=== PATIENT | male | born 1980 | race Caucasian/White ===

== ENCOUNTER → 2018-02-05 06:59 | Outpatient (CLI) | payer OTHER, MEDICAID, SELFPAY ==
[2018-02-05 09:31] LABS: Add Manual Diff / Slide Review NO; Basophils Percent Auto 0.9 % (0-2); Eosinophils Percent Auto 4.3 % (2-4); Hematocrit 43.1 % (41-53); Hemoglobin 14.5 g/dL (13.5-17.5); Lymphocytes Percent Auto 11.5 % (25-40); Mean Corpuscular HGB Conc 33.5 % (30-36); Mean Corpuscular Volume 86.4 fL (80-100); Monocytes Percent Auto 9.6 % (3-14); Neutrophils Absolute Auto 7000 /uL (3000-5900); Neutrophils Percent Auto 73.7 % (50-75); Platelet Count 353 X10^3/uL (150-400); Red Blood Cell Count 4.99 X10^6/uL (4.5-5.9); Red Cell Distribution Width 13.9 % (11.6-14.8); White Blood Cell Count 9.5 X10^3/uL (4.5-11.0)
[2018-02-05 09:57] LABS: Creatinine Urine Random 141.7 mg/dL
[2018-02-05 10:02] LABS: Microalbumi Creatinin Ratio Ur 6.3 ug/mg CR (<30); Microalbumin Urine Random 0.9 mg/dL (0-1.6)
[2018-02-05 10:09] LABS: Alanine Aminotransferase 38 IU/L (21-72); Albumin 4.4 g/dL (3.5-5.0); Albumin Globulin Ratio 1.2 (1.0-2.8); Alkaline Phosphatase 119 U/L (38-126); Aspartate Aminotransferase 24 IU/L (17-59); BUN Creatinine Ratio 11.1 (6-22); Bilirubin Total 0.3 mg/dL (0.2-1.3); Blood Urea Nitrogen 10 mg/dL (9-20); Calcium 9.3 mg/dL (8.4-10.2); Carbon Dioxide 26 mmol/L (22-32); Chloride 103 mmol/L (98-107); Estimated Glomerular Filt Rate > 60.0 mL/min (>60); Globulin 3.7 g/dL (1.7-4.1); Glucose 101 mg/dL (70-100); HEMOLYSIS < 15 (0-50); Potassium 4.4 mmol/L (3.4-5.1); Sodium 143 mmol/L (137-145); Total Protein 8.1 g/dL (6.3-8.2)
[2018-02-05 10:28] LABS: Thyroid Stimulating Hormone 1.73 uIU/mL (0.47-4.68)
== END ==
PROVIDERS: Family Provider Physician Assistant; PCP Physician Assistant; Visit Provider Physician Assistant
DX: I10 Essential (primary) hypertension (principal); R53.83 Other fatigue; R60.0 Localized edema
CPT/HCPCS: 36415; 80053; 82043; 82570; 84443; 85025

== ENCOUNTER 2018-07-13 09:06 | Emergency (ER) | payer OTHER, MEDICAID, SELFPAY ==
[2018-07-13 09:14] VITALS: BP 154/76; PULSE 82; RESP 16; TEMP 36.8; O2SAT 96; BMI 58.6
--- NOTE | 2018-07-13 09:33 | ED.BACK ---
HPI - Back Pain/Injury General Chief Complaint: Back Pain/Injury Stated Complaint: Back pain Time Seen by Provider: 07/13/18 09:33 Source: patient Mode of arrival: ambulatory Limitations: no limitations History of Present Illness HPI Narrative: This is a 38-year-old male comes to the emergency department with complaint of low back pain. Patient states he has had symptoms on off for couple years but they have been slowly worsening over the last couple weeks. Typically he would notice issues more with bending and twisting, but lately on any kind of movement concerned of kick it off. He has had shots for pain in the past here to the emergency department. Patient states that he is not sure if he has had any imaging of his back. He thinks he has had 2 x-rays in the past but he is unsure if it was actually his back. He denies any loss of bowel or bladder control. He is not having any numbness or weakness. Occasionally he will have some pain radiating down the left leg when it 1st happened with particular movements. But not regularly and not currently. He has been taking ibuprofen for pain intermittently. This usually controlled his pain moderately well. He denies any trauma or other injuries. Some he states he has been more physical lately. He takes medications for hypertension, he denies any other past medical issues. He denies any surgeries. Denies any allergies to medications. Patient does smoke, he drinks occasionally, he does smoke marijuana but denies any other IV drugs. He has not noticed any rashes or redness over the site. Related Data Home Medications Medication Instructions Recorded Confirmed ibuprofen [Advil] 600 mg PO PRN PRN #0 04/25/16 02/06/18 Previous Rx's Medication Instructions Recorded buspirone 5 mg tablet 5 mg PO BID #60 tab 11/26/17 furosemide 20 mg tablet 40 mg PO QDAY #60 tab 12/14/17 lisinopril 20 mg tablet 20 mg PO QDAY #90 tab 03/12/18 metoprolol succinate ER 50 mg 50 mg PO QDAY #90 tab 03/12/18 tablet,extended release 24 hr Allergies Allergy/AdvReac Type Severity Reaction Status Date / Time No Known Drug Allergies Allergy Verified 07/13/18 09:14 Review of Systems Review of Systems ROS Unobtainable: All systems reviewed & are unremarkable except as noted in HPI and below Constitutional Denies chills, Denies fever(s) and Denies weakness Gastrointestinal Gastrointestinal: Denies fecal incontinence Genitourinary Denies urinary incontinence Musculoskeletal Reports as per HPI, Denies abnormal gait, Reports back pain, Denies limited range of motion, Denies muscle weakness, Denies numbness, Reports radiating pain into limb (Occasionally left leg) and Denies tingling Integumentary/Breasts Denies non-healing lesions, Denies erythema and Denies rash Neurologic Denies abnormal gait, Denies numbness, Denies sensory deficit, Denies tingling and Denies weakness [facility] Medical History Hypertension (Chronic) Varicose veins of lower extremity (Chronic) Surgical History No history of previous surgery (Resolved) Family History (Updated 11/22/17 @ 14:36 by Zunilda Gloria LPN) Father Age: 68 Atrial fibrillation, unspecified type Essential hypertension Mother Melanoma Social History Smoking Status: Never smoker Smokeless tobacco user: chewing tobacco (been chewing for 24 years. ) second hand exposure: Yes (occasionally) alcohol intake: current (beer about 3 times a week.) substance use type: marijuana (smoke it daily.) Family History Father Age: 68 Atrial fibrillation, unspecified type Essential hypertension Mother Melanoma Social History Smoking Status: Never smoker Smokeless tobacco user: chewing tobacco (been chewing for 24 years. ) second hand exposure: Yes (occasionally) alcohol intake: current (beer about 3 times a week.) substance use type: marijuana (smoke it daily.) Exam Narrative Exam Narrative: GENERAL: Alert and oriented x three, well-appearing, morbidly obese male in mild distress. HEENT: Head normocephalic, atraumatic, EOMI, pupils reactive, face symmetric, moist mucous membranes NECK: Supple, full range of motion CARDIOVASCULAR: Regular rate and rhythm without murmurs, rubs or gallops. RESPIRATORY: Breath sounds equal bilaterally, no wheezes rales or rhonchi. ABDOMEN: Soft, nontender. Normoactive bowel sounds all 4 quadrants. No guarding or rebound, rigidity, no mass : No CVA tenderness BACK: No cervical, thoracic or lumbar vertebral point tenderness. Patient has some mild tenderness just lateral on the left side of the L4-5 region. There is no skin changes. Patient has normal range of motion. Patient is able to get up off the bed stand to get back on without any major issues. Patient's gait is normal. Rectal exam is deferred. Muscle strength is 5/5 in lower extremities, DTRs are difficult to obtain secondary to habitus and height of bed. Dorsalis pedis and tibialis pulses are 2+ and lower extremities. Sensation is intact in the lower extremities. EXTREMITIES: Normal range of motion, no clubbing or edema. Neurovascularly intact NEUROLOGICAL: Cranial nerves II through XII grossly intact. Moving all extremities SKIN: Warm, dry, no petechiae, no rashes or lesions. Initial Vital Signs Initial Vital Signs: Vital Signs Temperature 98.3 F 07/13/18 09:14 Pulse Rate 82 07/13/18 09:14 Respiratory Rate 16 07/13/18 09:14 Blood Pressure 154/76 H 07/13/18 09:14 Pulse Oximetry 96 07/13/18 09:14 Course Orders Ordered: ED Orders 07/13/18 09:44 XR lumbar spine 2-3V Stat Discontinued Medications Ketorolac Tromethamine (Toradol) 60 mg IM NOW ONE Stop: 07/13/18 09:44 Last Admin: 07/13/18 09:51 Dose: 60 mg Vital Signs - 8 hr 07/13/18 09:14 07/13/18 10:41 Temperature 98.3 F Pulse Rate 82 72 Respiratory Rate 16 16 Blood Pressure 154/76 H Blood Pressure [Right Arm] 155/90 H Pulse Oximetry 96 98 MDM - Back Pain/Injury Imaging Data L-spine x-ray: Radiologist's impression: [address] [address] XRay Report Signed Patient: Patrick Castillo INAR#: [id number] : 1980Acct:[id number] Age/Sex: 38 / MDate of Service: 07/13/18 Loc: ED Accession Number: [id number] Procedure: XR lumbar spine 2-3V Ordering Provider: Mank,Christina C D.O. PROCEDURE: XR LUMBAR SPINE 2-3V INDICATIONS: acute on chronic LBP, L4/L5 region, no trauma, no imaging pr TECHNIQUE: 3 views of the lumbar spine were acquired. COMPARISON: None. FINDINGS: Bones: 5 [id number] vertebrae are present. There is normal bony alignment. No vertebral body compression fractures. No suspicious bony lesions. Mild lower lumbar spine facet arthropathy is seen. Soft tissues: Overlying bowel gas pattern is normal. No suspicious soft tissue calcifications. IMPRESSION: Mild degenerative changes are seen, without an acute abnormality identified. Dictated by: Arvind Zavaleta M.D. on 07/13/2018 at 9:04 Approved by: Arvind Zavaleta M.D. on 07/13/2018 at 9:04 [facility] Narrative Medical decision making narrative: Patient appears to have some acute on chronic low back pain. Some patients old images were reviewed and I am not able to find any of his lumbar spine from the past there are 2 which fits with his history of having 2 prior x-rays psoas patient has had some chronic low back pain and he is only 38 years old although this is likely secondary to obesity causing some of his issues I did order a lumbar spine. Patient does not have any red flag symptoms at this time. He is requesting a shot of Toradol. The patient is feeling much better. L-spine x-ray does not show any acute changes but does have some degenerative changes. We discussed weight loss, following with primary. We also discussed decreasing his ibuprofen intake and alternating with Tylenol. Discharge Plan Departure Patient Disposition: Home Clinical Impression: Low back pain Discharge Date/Time: 07/13/18 10:43 Interventions: ED Discharge Assessment Last Done: 07/13/18 10:42 Instructions: DI for Low Back Pain Activity Restrictions/Additional Instructions: Follow-up with your primary care in the next week for recheck. If you continued to have symptoms that are worsening I would recommend discussing further imaging or PT. You may take ibuprofen up to 800 mg every 8 hours as needed for pain, you can take Tylenol with this medication and may take up to a 1000 mg every 8 hours. Return to the emergency department for fevers, rapidly worsening symptoms, loss of bowel and/or bladder control, new weakness/numbness or difficulty using your extremities or other new or concerning symptoms. Prescriptions: No Action buspirone 5 mg tablet 5 mg PO BID Qty: 60 RF: 1 ibuprofen [Advil] 200 MG tablet 600 mg PO PRN PRNQty: 0 RF: 0 furosemide 20 mg tablet 40 mg PO QDAY Qty: 60 RF: 6 lisinopril 20 mg tablet 20 mg PO QDAY Qty: 90 RF: 0 metoprolol succinate 50 mg tablet extended release 24 hr 50 mg PO QDAY Qty: 90 RF: 0 Referrals: Tonia Basilio PA-C [Primary Care Provider] -
--- NOTE | 2018-07-13 09:44 | DI.RAD.S_ITS ---
PROCEDURE: XR LUMBAR SPINE 2-3V INDICATIONS: acute on chronic LBP, L4/L5 region, no trauma, no imaging pr TECHNIQUE: 3 views of the lumbar spine were acquired. COMPARISON: None. FINDINGS: Bones: 5 [id number] vertebrae are present. There is normal bony alignment. No vertebral body compression fractures. No suspicious bony lesions. Mild lower lumbar spine facet arthropathy is seen. Soft tissues: Overlying bowel gas pattern is normal. No suspicious soft tissue calcifications. IMPRESSION: Mild degenerative changes are seen, without an acute abnormality identified. Dictated by: Arvind Zavaleta M.D. on 07/13/2018 at 9:04 Approved by: Arvind Zavaleta M.D. on 07/13/2018 at 9:04
[2018-07-13] MEDS: KETOROLAC 60 MG/2 ML VIAL IM (09:51)
--- NOTE | 2018-07-13 09:52 | ED_ITS ---
HPI - Back Pain/Injury General Chief Complaint: Back Pain/Injury Stated Complaint: Back pain Time Seen by Provider: 07/13/18 09:33 Source: patient Mode of arrival: ambulatory Limitations: no limitations History of Present Illness HPI Narrative: This is a 38-year-old male comes to the emergency department with complaint of low back pain. Patient states he has had symptoms on off for couple years but they have been slowly worsening over the last couple weeks. Typically he would notice issues more with bending and twisting, but lately on any kind of movement concerned of kick it off. He has had shots for pain in the past here to the emergency department. Patient states that he is not sure if he has had any imaging of his back. He thinks he has had 2 x-rays in the past but he is unsure if it was actually his back. He denies any loss of bowel or bladder control. He is not having any numbness or weakness. Occasionally he will have some pain radiating down the left leg when it 1st happened with partic ular movements. But not regularly and not currently. He has been taking ibuprofen for pain intermittently. This usually controlled his pain moderately well. He denies any trauma or other injuries. Some he states he has been more physical lately. He takes medications for hypertension, he denies any other past medical issues. He denies any surgeries. Denies any allergies to medications. Patient does smoke, he drinks occasionally, he does smoke marijuana but denies any other IV drugs. He has not noticed any rashes or redness over the site. Related Data Home Medications Medication Instructions Recorded Confirmed ibuprofen [Advil] 600 mg PO PRN PRN #0 04/25/16 02/06/18 Previous Rx's Medication Instructions Recorded buspirone 5 mg tablet 5 mg PO BID #60 tab 11/26/17 furosemide 20 mg tablet 40 mg PO QDAY #60 tab 12/14/17 lisinopril 20 mg tablet 20 mg PO QDAY #90 tab 03/12/18 metoprolol succinate ER 50 mg 50 mg PO QDAY #90 tab 03/12/18 tablet,extended release 24 hr Allergies Allergy/AdvReac Type Severity Reaction Status Date / Time No Known Drug Allergies Allergy Verified 07/13/18 09:14 Review of Systems Review of Systems ROS Unobtainable: All systems reviewed & are unremarkable except as noted in HPI and below Constitutional Denies chills, Denies fever(s) and Denies weakness Gastrointestinal Gastrointestinal: Denies fecal incontinence Genitourinary Denies urinary incontinence Musculoskeletal Reports as per HPI, Denies abnormal gait, Reports back pain, Denies limited range of motion, Denies muscle weakness, Denies numbness, Reports radiating pain into limb (Occasionally left leg) and Denies tingling Integumentary/Breasts Denies non-healing lesions, Denies erythema and Denies rash Neurologic Denies abnormal gait, Denies numbness, Denies sensory deficit, Denies tingling and Denies weakness [facility] Medical History Hypertension (Chronic) Varicose veins of lower extremity (Chronic) Surgical History No history of previous surgery (Resolved) Family History (Updated 11/22/17 @ 14:36 by Zunilda Gloria LPN) Father Age: 68 Atrial fibrillation, unspecified type Essential hypertension Mother Melanoma Social History Smoking Status: Never smoker Smokeless tobacco user: chewing tobacco (been chewing for 24 years. ) second hand exposure: Yes (occasionally) alcohol intake: current (beer about 3 times a week.) substance use type: marijuana (smoke it daily.) Family History Father Age: 68 Atrial fibrillation, unspecified type Essential hypertension Mother Melanoma Social History Smoking Status: Never smoker Smokeless tobacco user: chewing tobacco (been chewing for 24 years. ) second hand exposure: Yes (occasionally) alcohol intake: current (beer about 3 times a week.) substance use type: marijuana (smoke it daily.) Exam Narrative Exam Narrative: GENERAL: Alert and oriented x three, well-appearing, morbidly obese male in mild distress. HEENT: Head normocephalic, atraumatic, EOMI, pupils reactive, face symmetric, moist mucous membranes NECK: Supple, full range of motion CARDIOVASCULAR: Regular rate and rhythm without murmurs, rubs or gallops. RESPIRATORY: Breath sounds equal bilaterally, no wheezes rales or rhonchi. ABDOMEN: Soft, nontender. Normoactive bowel sounds all 4 quadrants. No guarding or rebound, rigidity, no mass : No CVA tenderness BACK: No cervical, thoracic or lumbar vertebral point tenderness. Patient has some mild tenderness just lateral on the left side of the L4-5 region. There is no skin changes. Patient has normal range of motion. Patient is able to get up off the bed stand to get back on without any major issues. Patient's gait is normal. Rectal exam is deferred. Muscle strength is 5/5 in lower extremities, DTRs are difficult to obtain secondary to habitus and height of bed. Dorsalis pedis and tibialis pulses are 2+ and lower extremities. Sensation is intact in the lower extremities. EXTREMITIES: Normal range of motion, no clubbing or edema. Neurovascularly intact NEUROLOGICAL: Cranial nerves II through XII grossly intact. Moving all extremities SKIN: Warm, dry, no petechiae, no rashes or lesions. Initial Vital Signs Initial Vital Signs: Vital Signs Temperature 98.3 F 07/13/18 09:14 Pulse Rate 82 07/13/18 09:14 Respiratory Rate 16 07/13/18 09:14 Blood Pressure 154/76 H 07/13/18 09:14 Pulse Oximetry 96 07/13/18 09:14 Course Orders Ordered: ED Orders 07/13/18 09:44 XR lumbar spine 2-3V Stat Discontinued Medications Ketorolac Tromethamine (Toradol) 60 mg IM NOW ONE Stop: 07/13/18 09:44 Last Admin: 07/13/18 09:51 Dose: 60 mg Vital Signs - 8 hr 07/13/18 09:14 07/13/18 10:41 Temperature 98.3 F Pulse Rate 82 72 Respiratory Rate 16 16 Blood Pressure 154/76 H Blood Pressure [Right Arm] 155/90 H Pulse Oximetry 96 98 MDM - Back Pain/Injury Imaging Data L-spine x-ray: Radiologist's impression: [address] [address] XRay Report Signed Patient: Patrick Castillo JMR#: [id number] : 1980Acct:[id number] Age/Sex: 38 / MDate of Service: 07/13/18 Loc: ED Accession Number: [id number] Procedure: XR lumbar spine 2-3V Ordering Provider: Mank,Christina C D.O. PROCEDURE: XR LUMBAR SPINE 2-3V INDICATIONS: acute on chronic LBP, L4/L5 region, no trauma, no imaging pr TECHNIQUE: 3 views of the lumbar spine were acquired. COMPARISON: None. FINDINGS: Bones: 5 [id number] vertebrae are present. There is normal bony alignment. No vertebral body compression fractures. No suspicious bony lesions. Mild lower lumbar spine facet arthropathy is seen. Soft tissues: Overlying bowel gas pattern is normal. No suspicious soft tissue calcifications. IMPRESSION: Mild degenerative changes are seen, without an acute abnormality identified. Dictated by: Arvind Zavaleta M.D. on 07/13/2018 at 9:04 Approved by: Arvind Zavaleta M.D. on 07/13/2018 at 9:04 [facility] Narrative Medical decision making narrative: Patient appears to have some acute on chronic low back pain. Some patients old images were reviewed and I am not able to find any of his lumbar spine from the past there are 2 which fits with his history of having 2 prior x-rays psoas patient has had some chronic low back pain and he is only 38 years old although this is likely secondary to obesity causing some of his issues I did order a lumbar spine. Patient does not have any red flag symptoms at this time. He is requesting a shot of Toradol. The patient is feeling much better. L-spine x-ray does not show any acute changes but does have some degenerative changes. We discussed weight loss, following with primary. We also discussed decreasing his ibuprofen intake and alternating with Tylenol. Discharge Plan Departure Patient Disposition: Home Clinical Impression: Low back pain Discharge Date/Time: 07/13/18 10:43 Interventions: ED Discharge Assessment Last Done: 07/13/18 10:42 Instructions: DI for Low Back Pain Activity Restrictions/Additional Instructions: Follow-up with your primary care in the next week for recheck. If you continued to have symptoms that are worsening I would recommend discussing further imaging or PT. You may take ibuprofen up to 800 mg every 8 hours as needed for pain, you can take Tylenol with this medication and may take up to a 1000 mg every 8 hours. Return to the emergency department for fevers, rapidly worsening symptoms, loss of bowel and/or bladder control, new weakness/numbness or difficulty using your extremities or other new or concerning symptoms. Prescriptions: No Action buspirone 5 mg tablet 5 mg PO BID Qty: 60 RF: 1 ibuprofen [Advil] 200 MG tablet 600 mg PO PRN PRNQty: 0 RF: 0 furosemide 20 mg tablet 40 mg PO QDAY Qty: 60 RF: 6 lisinopril 20 mg tablet 20 mg PO QDAY Qty: 90 RF: 0 metoprolol succinate 50 mg tablet extended release 24 hr 50 mg PO QDAY Qty: 90 RF: 0 Referrals: Tonia Basilio PA-C [Primary Care Provider] -
[2018-07-13 10:41] VITALS: BP 155/90; PULSE 72; RESP 16; O2SAT 98
== END 2018-07-13 10:43 | disposition home or self-care (01) ==
PROVIDERS: Emergency Provider Emergency Medicine; PCP Physician Assistant
DX: M54.5 Low back pain (principal)
CPT/HCPCS: 72100; 96372; 99282; 99283; J1885

== ENCOUNTER → 2019-01-19 07:10 | Outpatient (CLI) | payer OTHER, MEDICAID, SELFPAY ==
[2019-01-19 07:58] LABS: BUN Creatinine Ratio 13.3 (6-22); Blood Urea Nitrogen 12 mg/dL (9-20); Calcium 9.5 mg/dL (8.4-10.2); Carbon Dioxide 24 mmol/L (22-32); Chloride 102 mmol/L (98-107); Estimated Glomerular Filt Rate > 60.0 mL/min (>60); Glucose 132 mg/dL (70-100); HEMOLYSIS 42 (0-50); Potassium 4.8 mmol/L (3.4-5.1); Sodium 137 mmol/L (137-145)
== END ==
PROVIDERS: PCP Physician Assistant; Visit Provider Physician Assistant
DX: I10 Essential (primary) hypertension (principal)
CPT/HCPCS: 36415; 80048

== ENCOUNTER → 2019-03-28 08:18 | Outpatient (CLI) | payer OTHER, MEDICAID, SELFPAY ==
[2019-03-28 09:29] LABS: Hemoglobin A1C% w Est Avg Glu 5.9 % (4.0-6.0)
[2019-03-28 09:31] LABS: Alanine Aminotransferase 56 IU/L (<50); Albumin 4.3 g/dL (3.5-5.0); Albumin Globulin Ratio 1.2 (1.0-2.8); Alkaline Phosphatase 125 U/L (38-126); Aspartate Aminotransferase 39 IU/L (17-59); BUN Creatinine Ratio 12.2 (6-22); Bilirubin Total 0.4 mg/dL (0.2-1.3); Blood Urea Nitrogen 11 mg/dL (9-20); Calcium 9.1 mg/dL (8.4-10.2); Carbon Dioxide 24 mmol/L (22-32); Chloride 102 mmol/L (98-107); Cholesterol 207 mg/dL (140-199); Estimated Glomerular Filt Rate > 60.0 mL/min (>60); Globulin 3.6 g/dL (1.7-4.1); Glucose 124 mg/dL (70-100); HDL Cholesterol 39 mg/dL (40-60); HEMOLYSIS < 15 (0-50); LDL Cholesterol Calculated 147 mg/dL (<100); Potassium 4.4 mmol/L (3.4-5.1); Sodium 136 mmol/L (137-145); Total Protein 7.9 g/dL (6.3-8.2); Triglycerides 105 mg/dL (35-150)
[2019-03-28 09:51] LABS: Microalbumin Urine Random 2.6 mg/dL (0-1.6)
[2019-03-28 10:04] LABS: Thyroid Stimulating Hormone 1.45 uIU/mL (0.47-4.68)
[2019-03-28 10:21] LABS: Creatinine Urine Random 356.6 mg/dL; Microalbumi Creatinin Ratio Ur 7.2 ug/mg CR (<30)
== END ==
PROVIDERS: PCP Physician Assistant; Visit Provider Physician Assistant
DX: I10 Essential (primary) hypertension (principal); R73.01 Impaired fasting glucose; Z13.220 Encounter for screening for lipoid disorders; Z13.6 Encounter for screening for cardiovascular disorders
CPT/HCPCS: 36415; 80053; 80061; 82043; 82570; 83036; 84443

== ENCOUNTER → 2020-02-05 07:37 | Outpatient (CLI) | payer OTHER, MEDICAID, SELFPAY ==
[2020-02-05 08:29] LABS: Hemoglobin A1C% w Est Avg Glu 6.8 % (4.0-6.0)
[2020-02-05 08:58] LABS: Alanine Aminotransferase 66 IU/L (<50); Albumin 4.1 g/dL (3.5-5.0); Albumin Globulin Ratio 1.1 (1.0-2.8); Alkaline Phosphatase 121 U/L (38-126); Aspartate Aminotransferase 48 IU/L (17-59); BUN Creatinine Ratio 12.6 (6-22); Bilirubin Total 0.5 mg/dL (0.2-1.3); Blood Urea Nitrogen 13 mg/dL (9-20); Calcium 9.6 mg/dL (8.4-10.2); Carbon Dioxide 31 mmol/L (22-32); Chloride 101 mmol/L (98-107); Cholesterol 206 mg/dL (140-199); Estimated Glomerular Filt Rate > 60.0 mL/min (>60); Globulin 3.7 g/dL (1.7-4.1); Glucose 138 mg/dL (70-100); HDL Cholesterol 45 mg/dL (40-60); HEMOLYSIS < 15 (0-50); LDL Cholesterol Calculated 135 mg/dL (<100); Potassium 5.4 mmol/L (3.4-5.1); Sodium 136 mmol/L (137-145); Total Protein 7.8 g/dL (6.3-8.2); Triglycerides 131 mg/dL (35-150)
[2020-02-05 09:47] LABS: Creatinine Urine Random 423.5 mg/dL
[2020-02-05 09:48] LABS: Microalbumi Creatinin Ratio Ur 3.5 ug/mg CR (<30); Microalbumin Urine Random 1.5 mg/dL (0-1.6)
== END ==
PROVIDERS: PCP Family Medicine; Referring Provider Family Medicine; Visit Provider Family Medicine
DX: E66.01 Morbid (severe) obesity due to excess calories (principal); E78.5 Hyperlipidemia, unspecified; I10 Essential (primary) hypertension; R73.01 Impaired fasting glucose; Z68.44 Body mass index [BMI] 60.0-69.9, adult
CPT/HCPCS: 36415; 80053; 80061; 82043; 82570; 83036

== ENCOUNTER → 2020-05-16 07:41 | Outpatient (CLI) | payer OTHER, MEDICAID, SELFPAY ==
[2020-05-16 08:22] LABS: Hemoglobin A1C% w Est Avg Glu 6.7 % (4.0-6.0)
[2020-05-16 08:23] LABS: Alanine Aminotransferase 54 IU/L (<50); Albumin 4.2 g/dL (3.5-5.0); Albumin Globulin Ratio 1.1 (1.0-2.8); Alkaline Phosphatase 137 U/L (38-126); Aspartate Aminotransferase 43 IU/L (17-59); BUN Creatinine Ratio 14.4 (6-22); Bilirubin Total 0.4 mg/dL (0.2-1.3); Blood Urea Nitrogen 14 mg/dL (9-20); Calcium 9.4 mg/dL (8.4-10.2); Carbon Dioxide 26 mmol/L (22-32); Chloride 100 mmol/L (98-107); Estimated Glomerular Filt Rate > 60.0 mL/min (>60); Globulin 3.7 g/dL (1.7-4.1); Glucose 161 mg/dL (70-100); HEMOLYSIS < 15 (0-50); Potassium 4.3 mmol/L (3.4-5.1); Sodium 134 mmol/L (137-145); Total Protein 7.9 g/dL (6.3-8.2)
[2020-05-16 08:52] LABS: Microalbumin Urine Random 9.1 mg/dL (0-1.6)
[2020-05-16 09:12] LABS: Creatinine Urine Random 1036.2 mg/dL; Microalbumi Creatinin Ratio Ur 8.7 ug/mg CR (<30)
== END ==
PROVIDERS: PCP Family Medicine; Referring Provider Family Medicine; Visit Provider Family Medicine
DX: E11.9 Type 2 diabetes mellitus without complications (principal); E78.5 Hyperlipidemia, unspecified
CPT/HCPCS: 36415; 80053; 82043; 82570; 83036

== ENCOUNTER → 2020-05-19 12:13 | Outpatient (CLI) | payer OTHER, MEDICAID, SELFPAY ==
[2020-05-19] MEDS: COVID-19 VACC #1, MRNA(MOD) 100 MCG/0.5 ML VIAL IM (12:25)
== END ==
PROVIDERS: PCP Family Medicine; Visit Provider Internal Medicine
DX: Z23 Encounter for immunization (principal)
CPT/HCPCS: 0011A; 91301

== ENCOUNTER → 2020-06-16 09:29 | Outpatient (CLI) | payer OTHER, MEDICAID, SELFPAY ==
[2020-06-16] MEDS: COVID-19 VACC #2, MRNA(MOD) 100 MCG/0.5 ML VIAL IM (09:39)
== END ==
PROVIDERS: PCP Family Medicine; Visit Provider Internal Medicine
DX: Z23 Encounter for immunization (principal)
CPT/HCPCS: 0012A; 91301

== ENCOUNTER 2020-09-29 23:00 | Emergency (ER) | payer OTHER, MEDICAID, SELFPAY ==
[2020-09-29 23:24] VITALS: BP 191/91; PULSE 76; RESP 18; TEMP 36.6; O2SAT 99; BMI 59.3
== END 2020-09-30 01:35 | disposition left against medical advice (07) ==
PROVIDERS: Emergency Provider Emergency Medicine; PCP Family Medicine
CPT/HCPCS: 99281

== ENCOUNTER 2020-10-02 06:48 | Emergency (ER) | payer OTHER, MEDICAID, SELFPAY ==
[2020-10-02 07:24] VITALS: BP 151/77; PULSE 70; RESP 19; TEMP 36.7; O2SAT 98; BMI 59.3
--- NOTE | 2020-10-02 08:07 | ED_ITS ---
HPI - Extremity Problem General Chief complaint: Extremity Problem,Nontraumatic Stated complaint: RIGHT SHOULDER PAIN FOR 4 DAYS Time Seen by Provider: 10/02/20 08:07 Source: patient Mode of arrival: Family Vehicle Limitations: no limitations History of Present Illness HPI Narrative: This is a 40-year-old male comes emergency department with complaint of right neck, shoulder pain radiating down his arm with some numbness and tingling into his left thumb. Patient states that he had not had similar symptoms before. Patient started having symptoms Saturday, he states they were sort of intermittent intensity throughout the weekend. Patient has been taking ibuprofen and Tylenol with minimal improvement. He is not appreciate any new weakness. Has not had any other sensation changes. He has not any loss of bowel or bladder control. Patient does not recall having any trauma or injury. He woke up in the morning and thought he may have slept wrong. Patient has had low back issues in the past. He does have a history of hypertension, diabetes and dyslipidemia with a BMI of 59. He does not have any known renal dysfunction. Patient follows with Dr. Ruiz. Patient states he has had Toradol shots in the past which were quite helpful. His main goal today is pain control with plan to follow up with his primary care if not improving. Related Data Home Medications Medication Instructions Recorded Confirmed ibuprofen 200 mg tablet (Advil) 600 mg PO PRN PRN #0 04/25/16 02/10/20 Previous Rx's Medication Instructions Recorded lisinopril 20 mg tablet 40 mg PO QDAY #60 tab 05/09/20 hydrochlorothiazide 25 mg tablet See Rx Instructions .ROUTE 05/20/20 .COMPLEX #90 tab atorvastatin 20 mg tablet See Rx Instructions .ROUTE 08/31/20 .COMPLEX #90 tab metformin 500 mg tablet,extended 1,000 mg PO DAILY #120 tab 08/31/20 release 24 hr metoprolol succinate 50 mg 50 mg PO QDAY #30 tab 09/20/20 tablet,extended release 24 hr gabapentin 300 mg capsule 300 mg PO TID #30 cap 10/02/20 (Neurontin) meloxicam 7.5 mg tablet (Mobic) 7.5 mg PO DAILY PRN #14 tab 10/02/20 Allergies Allergy/AdvReac Type Severity Reaction Status Date / Time No Known Drug Allergies Allergy Verified 09/29/20 23:24 Review of Systems Review of Systems ROS Unobtainable: All systems reviewed & are unremarkable except as noted in HPI and below Patient History Medical History Diabetes mellitus Hypertension Varicose veins of lower extremity Venous stasis Surgical History No history of previous surgery Family History Father Age: 70 Atrial fibrillation, unspecified type Essential hypertension Mother Melanoma Social History Smoking Status: Never smoker Smokeless tobacco user: chewing tobacco (been chewing for 24 years. ) second hand exposure: Yes (occasionally) alcohol intake: current (beer about 3 times a week.) substance use type: marijuana (smoke it daily.) Smoking Status: Never smoker alcohol intake frequency: a few times a week Substance Use Type: marijuana Exam Narrative Exam Narrative: GENERAL: Alert and oriented x three, male with BMI 59 in mild discomfort. Patient is sitting on the edge of the bed. HEENT: Head normocephalic, atraumatic, EOMI, pupils reactive, face symmetric, moist mucous membranes NECK: Supple, full range of motion CARDIOVASCULAR: Regular rate and rhythm without murmurs, rubs or gallops. RESPIRATORY: Breath sounds equal bilaterally, no wheezes rales or rhonchi. ABDOMEN: Soft, nontender. Normoactive bowel sounds all 4 quadrants. No guarding or rebound, rigidity, no mass : No CVA tenderness BACK: No cervical, thoracic or lumbar vertebral point tenderness. Patient has normal range of motion upper extremity, wrist and hands and fingers. Patient's gait is normal. Muscle strength is 5/5 in upper extremities, purchase price analyst is equal bilaterally, DTRs are 2/4 upper extremities. 2+ radial pulses bilaterally. Sensation is intact in upper extremities. Patient states sensation is equal in both thumbs to light touch. EXTREMITIES: Normal range of motion, no clubbing or edema. Neurovascularly intact NEUROLOGICAL: Cranial nerves II through XII grossly intact. Moving all extremities SKIN: Warm, dry, no petechiae, no rashes or lesions. Initial Vital Signs Initial Vital Signs: Vital Signs Temperature 98.1 F 10/02/20 07:24 Pulse Rate 70 10/02/20 07:24 Respiratory Rate 19 10/02/20 07:24 Blood Pressure 151/77 H 10/02/20 07:24 Pulse Oximetry 98 10/02/20 07:24 Course Orders Ordered: Discontinued Medications Ketorolac Tromethamine (Ketorolac 30 Mg/Ml Vial) 30 mg IM NOW ONE Stop: 10/02/20 08:23 Last Admin: 10/02/20 08:47 Dose: 30 mg Documented by: FRANCES Vital Signs Vital signs: Vital Signs - 8 hr 10/02/20 07:24 Temperature 98.1 F Pulse Rate 70 Respiratory Rate 19 Blood Pressure 151/77 H Pulse Oximetry 98 MDM - Extremity (Nontraumatic) MDM Narrative Medical decision making narrative: 40-year-old male with right shoulder pain radiating down his arm with numbness in his thumb. Patient actually has normal neurologic and physical exam. At suspect cervical radiculopathy. Patient and I discussed that with his medical history he should not be on NSAIDs for prolonged period of time but short course would not be inappropriate can try Neurontin for discomfort. Was asked to follow up with his physician is this is fairly new for further evaluation and workup as needed. Discharge Plan Departure Patient Disposition: Home Clinical Impression: Cervical radiculopathy Instructions: DI for Lumbar Radiculopathy Activity Restrictions/Additional Instructions: Follow-up with your physician in the next week if her symptoms are not improving. I suspect that 1 or some of the nerves that come from her neck between the cervical vertebrae are being impinged and causing her symptoms. You may take Neurontin 1 tablet every 8 hours for pain. This medication is most helpful when taken every day and not as an as-needed medication. This is a low dose and can be titrated upwards by her physician. You may take Mobic 1 tablet every 12 hours as needed for pain. Do not take other NSAIDs with this medication. This medication can be hard on your kidneys so do not take for prolonged periods of time. You may take tylenol up to 1000mg every 8 hours as needed for pain with mobic or neurontin. Prescription sent to [facility] in [place]. Please return for fevers, new weakness, loss of sensation, unable to lift or move your arm, your wrist or usually fingers appropriately, loss of purchase price analyst, color changes of your upper extremity, loss of bowel or bladder control, lightheadedness or passing out, new chest pain, shortness of breath persistent vomiting. Prescriptions: New gabapentin [Neurontin] 300 mg capsule 300 mg PO TID Qty: 30 RF: 0 meloxicam [Mobic] 7.5 mg tablet 7.5 mg PO DAILY PRN (Reason: pain) Qty: 14 RF: 0 No Action ibuprofen [Advil] 200 MG tablet 600 mg PO PRN PRNQty: 0 RF: 0 lisinopril 20 mg tablet 40 mg PO QDAY Qty: 60 RF: 3 metformin 500 mg tablet extended release 24 hr 1,000 mg PO DAILY Qty: 120 RF: 3 atorvastatin 20 mg tablet See Rx Instructions .ROUTE .COMPLEX Qty: 90 RF: 3 metoprolol succinate 50 mg tablet extended release 24 hr 50 mg PO QDAY Qty: 30 RF: 3 hydrochlorothiazide 25 mg tablet See Rx Instructions .ROUTE .COMPLEX Qty: 90 RF: 3 Referrals: Kenneth Ruiz MD [Primary Care Provider] -
[2020-10-02] MEDS: KETOROLAC 30 MG/ML VIAL IM (08:47)
== END 2020-10-02 09:01 | disposition home or self-care (01) ==
PROVIDERS: Emergency Provider Emergency Medicine; PCP Family Medicine
DX: M54.12 Radiculopathy, cervical region (principal)
CPT/HCPCS: 96372; 99283; J1885

== ENCOUNTER → 2021-06-12 06:55 | Outpatient (CLI) | payer OTHER, MEDICAID, SELFPAY ==
[2021-06-12 08:11] LABS: Microalbumin Urine Random 7.7 mg/dL (0-1.6)
[2021-06-12 08:39] LABS: Add Manual Diff / Slide Review NO; Basophils Absolute Auto 100 /uL (0-100); Basophils Percent Auto 1.3 % (0-2); Eosinophils Absolute Auto 400 /uL (0-450); Eosinophils Percent Auto 3.3 % (2-4); Hematocrit 45.4 % (41-53); Lymphocytes Absolute Auto 1000 /uL (1100-4500); Lymphocytes Percent Auto 9.4 % (25-40); Mean Corpuscular HGB Conc 33.1 % (30-36); Mean Corpuscular Hemoglobin 28.3 PG (26-34); Mean Corpuscular Volume 85.7 fL (80-100); Monocytes Absolute Auto 900 /uL (0-900); Monocytes Percent Auto 7.6 % (3-14); Neutrophils Absolute Auto 8700 /uL (1500-7000); Neutrophils Percent Auto 78.4 % (50-75); Platelet Count 388 X10^3/uL (150-400); Red Cell Distribution Width 14.9 % (11.6-14.8); White Blood Cell Count 11.1 X10^3/uL (4.5-11.0)
[2021-06-12 08:53] LABS: Hemoglobin A1C% w Est Avg Glu 6.7 % (4.0-6.0)
[2021-06-12 08:54] LABS: Alanine Aminotransferase 58 IU/L (<50); Albumin 4.7 g/dL (3.5-5.0); Albumin Globulin Ratio 1.4 (1.0-2.8); Alkaline Phosphatase 138 U/L (38-126); Aspartate Aminotransferase 40 IU/L (17-59); BUN Creatinine Ratio 12.9 (6-22); Bilirubin Total 0.5 mg/dL (0.2-1.3); Blood Urea Nitrogen 13 mg/dL (9-20); Calcium 9.9 mg/dL (8.4-10.2); Carbon Dioxide 24 mmol/L (22-32); Chloride 101 mmol/L (98-107); Cholesterol 160 mg/dL (140-199); Estimated Glomerular Filt Rate > 60.0 mL/min (>60); Globulin 3.4 g/dL (1.7-4.1); Glucose 151 mg/dL (70-100); HDL Cholesterol 47 mg/dL (40-60); HEMOLYSIS < 15 (0-50); LDL Cholesterol Calculated 84 mg/dL (<100); Potassium 4.9 mmol/L (3.4-5.1); Sodium 137 mmol/L (137-145); Total Protein 8.1 g/dL (6.3-8.2); Triglycerides 144 mg/dL (35-150)
[2021-06-12 16:39] LABS: Creatinine Urine Random 404.1 mg/dL
== END ==
PROVIDERS: PCP Family Medicine; Referring Provider Family Medicine; Visit Provider Family Medicine
DX: E11.9 Type 2 diabetes mellitus without complications (principal); E66.01 Morbid (severe) obesity due to excess calories; E78.5 Hyperlipidemia, unspecified; G47.33 Obstructive sleep apnea (adult) (pediatric); I87.8 Other specified disorders of veins; Z68.44 Body mass index [BMI] 60.0-69.9, adult
CPT/HCPCS: 36415; 80053; 80061; 82043; 82570; 83036; 84443; 85025

== ENCOUNTER → 2021-11-14 12:30 | Outpatient (CLI) | payer OTHER, MEDICAID, SELFPAY ==
--- NOTE | 2021-11-14 13:10 | DI.US.S_ITS ---
PROCEDURE: US ABDOMEN LIMITED INDICATIONS: elevated liver enzymes TECHNIQUE: Real-time focused scanning was performed of the abdomen, with image documentation. COMPARISON: None. FINDINGS: Overall limited imaging quality, secondary to body habitus. Evaluation of the liver is limited. The left lobe is grossly unremarkable. The right lobe of the liver is not well seen. The liver demonstrates increased echogenicity. No findings of gallstones or sludge are seen. The gallbladder wall is not thickened, measuring 3 mm or less. No specific pericholecystic fluid is seen. The sonographic Rosen sign is negative. The biliary tree is not well seen. The pancreas is not well seen. No free fluid can be seen. IMPRESSION: Virtually nondiagnostic study, with poor visualization of the liver. Fatty liver infiltration noted. Dictated by: Arvind Zavaleta M.D. on 11/14/2021 at 16:20 Approved by: Arvind Zavaleta M.D. on 11/14/2021 at 16:22
== END ==
PROVIDERS: PCP Family Medicine; Referring Provider Family Medicine; Visit Provider Family Medicine
DX: R74.8 Abnormal levels of other serum enzymes (principal); R79.89 Other specified abnormal findings of blood chemistry
CPT/HCPCS: 76705

== ENCOUNTER 2021-12-16 19:34 | Emergency (ER) | payer OTHER, MEDICAID, SELFPAY ==
[2021-12-16 19:38] VITALS: BP 201/95; PULSE 99; RESP 18; TEMP 36.9; O2SAT 98; BMI 58.1
[2021-12-16] MEDS: KETOROLAC 30 MG/ML VIAL IM (22:24)
--- NOTE | 2021-12-16 23:14 | ED.BACK ---
HPI - Back Pain/Injury General Chief Complaint: Back Pain/Injury Stated Complaint: Lower Back Pain Time Seen by Provider: 12/16/21 20:20 Source: patient History of Present Illness HPI Narrative: 41-year-old gentleman, morbid obesity, hypertension, hyperlipidemia, diabetes presents with acute low back pain. He has had previous episodes of similar pain that have resolved with conservative management. He is currently actively working on weight loss and has lost around 50 lb. He has not done physical therapy. He has been using ibuprofen at home. He notes that typically it simply takes twisting turning or sneezing in the wrong direction to cause the back to spasm. He does not have any ?red flag? signs. There is no history of IV drug use, no recent surgeries or instrumentation of the spine, no fevers or chills, no weakness, urine retention or urine incontinence. He finds that standing up and leaning forward is most helpful with the current episode of spasm that he is experiencing. He describes no other fevers, cough, chills, chest pain, shortness a breath. Related Data Home Medications Medication Instructions Recorded Confirmed ibuprofen 200 mg tablet (Advil) 600 mg PO PRN PRN ##0 04/25/16 06/16/21 Previous Rx's Medication Instructions Recorded metoprolol succinate 50 mg See Rx Instructions .Route 03/13/21 tablet,extended release 24 hr .COMPLEX #90 tabs metformin 500 mg tablet,extended 1,000 mg PO DAILY #180 tabs 06/16/21 release 24 hr lisinopril 40 mg tablet See Rx Instructions .Route 06/29/21 .COMPLEX #90 tabs atorvastatin 20 mg tablet See Rx Instructions .Route 10/10/21 .COMPLEX #90 tabs hydrochlorothiazide 25 mg tablet See Rx Instructions .Route 11/14/21 .COMPLEX #90 tabs cyclobenzaprine 10 mg tablet 10 mg PO TID PRN muscle spasm #10 12/16/21 tabs Allergies Allergy/AdvReac Type Severity Reaction Status Date / Time No Known Drug Allergies Allergy Verified 09/29/20 23:24 Review of Systems Review of Systems Narrative: Remainder of complete review of systems is otherwise unremarkable except for that included in the HPI. Patient History Medical History Diabetes mellitus Elevated liver enzymes Hypertension Varicose veins of lower extremity Venous stasis Surgical History No history of previous surgery Family History Father Age: 71 Atrial fibrillation, unspecified type Essential hypertension Mother Melanoma Social History Smoking Status: Never smoker Smokeless tobacco user: chewing tobacco (been chewing for 24 years. ) second hand exposure: Yes (occasionally) alcohol intake: current (beer about 3 times a week.) substance use type: marijuana (smoke it daily.) Smoking Status: Never smoker alcohol intake frequency: a few times a week Substance Use Type: marijuana Exam Initial Vital Signs Initial Vital Signs: Vital Signs Temperature 98.4 F 12/16/21 19:38 Pulse Rate 99 H 12/16/21 19:38 Respiratory Rate 18 12/16/21 19:38 Blood Pressure 201/95 H 12/16/21 19:38 Pulse Oximetry 98 12/16/21 19:38 Oxygen Delivery Method 12/16/21 19:38 General: Alert appropriate in no acute distress Respiratory: Able to speak in full sentences, no obvious respiratory distress Skin: No obvious rashes, warm and dry Low back: Some minor paraspinous tenderness on the left lower lumbar area. No skin changes, no specific midline tenderness, erythema or fluctuance. No sciatic complaints. Normal gait once he is able to get himself into a standing position. Neurologic: Grossly intact no obvious asymmetries or abnormalities Psych: appropriate insight and affect, cooperative Course Orders Ordered: Discontinued Medications Ketorolac Tromethamine (Ketorolac 30 Mg/Ml Vial) 30 mg IM NOW ONE Stop: 12/16/21 22:13 Last Admin: 12/16/21 22:24 Dose: 30 mg Documented By: KATYA Vital Signs Vital signs: Vital Signs - 8 hr 12/16/21 19:38 Temperature 98.4 F Pulse Rate 99 H Respiratory Rate 18 Blood Pressure 201/95 H Pulse Oximetry 98 Oxygen Delivery Method Room Air MDM - Back Pain/Injury MDM Narrative Medical decision making narrative: 41-year-old gentleman with fairly classic history of acute low back strain without radicular findings and without concern for epidural abscess or cauda equina syndrome. He has responded nicely to a shot of Toradol. He has not tried muscle relaxers so I have given him a take-home sample of cyclobenzaprine with instructions to give it a try to night. A prescription is written if he does find that helpful. We also talked about appropriate dosing for ibuprofen, continued weight loss and also suggested that he talk to his primary care doctor about physical therapy. Questions are answered he is safe for home discharge Discharge Plan Departure Patient Disposition: Home Clinical Impression: Low back pain Qualifiers: Chronicity: acute Back pain laterality: left Sciatica presence: without sciatica Qualified Code(s): M54.50 - Low back pain, unspecified Instructions: DI for Low Back Pain Activity Restrictions/Additional Instructions: Thank you for coming in today I think that you are experiencing every day human type back pain. There are no ?red flags? to suggest severe injury need for immediate surgery or concern for infections. You were given a shot of Toradol in the emergency department. I have sent you home with a couple tablets of cyclobenzaprine. This is a muscle relaxer and typically helps within the 1st 2-3 days of the acute injury. It will make you sleepy. I would try a tablet before you go to bed tonight and see if it makes a difference. I have given you a prescription that you can choose to fill if you find it helpful. Please do not take a medication that is not providing relief. Using 400 mg of ibuprofen (2 [id number] pills) and 1 Tylenol every 6 hours can be very helpful in controlling pain. Congratulations on your weight loss. Continuing that is going to be very helpful in long-term management of your back pain. It may be appropriate to discuss physical therapy with your primary care physician at her next visit as well If you find that you are getting worse or develop any new symptoms, please feel free to return to the emergency department for further evaluation. Prescriptions: New cyclobenzaprine 10 mg tablet 10 mg PO TID PRN (Reason: muscle spasm) Qty: 10 0RF No Action ibuprofen [Advil] 200 MG tablet 600 mg PO PRN PRNQty: 0 metoprolol succinate 50 mg tablet extended release 24 hr See Rx Instructions .ROUTE .COMPLEX Qty: 90 3RF Dose Instruction: TAKE ONE TABLET BY MOUTH ONE TIME DAILY Rx Instructions: TAKE ONE TABLET BY MOUTH ONE TIME DAILY lisinopril 40 mg tablet See Rx Instructions .ROUTE .COMPLEX Qty: 90 3RF Dose Instruction: TAKE ONE TABLET BY MOUTH ONE TIME DAILY Rx Instructions: TAKE ONE TABLET BY MOUTH ONE TIME DAILY atorvastatin 20 mg tablet See Rx Instructions .ROUTE .COMPLEX Qty: 90 0RF Dose Instruction: TAKE ONE TABLET BY MOUTH ONE TIME DAILY AT BEDTIME Rx Instructions: TAKE ONE TABLET BY MOUTH ONE TIME DAILY AT BEDTIME hydrochlorothiazide 25 mg tablet See Rx Instructions .ROUTE .COMPLEX Qty: 90 3RF Dose Instruction: TAKE ONE TABLET BY MOUTH ONE TIME DAILY Rx Instructions: TAKE ONE TABLET BY MOUTH ONE TIME DAILY metformin 500 mg tablet extended release 24 hr 1,000 mg PO DAILY Qty: 180 3RF Rx Instructions: Not able to tolerate quick release Referrals: Kenneth Ruiz MD [Primary Care Provider] -
[2021-12-16] MEDS: CYCLOBENZAPRINE 10 MG PREPACK 1 BOTTLE MISC (23:22)
[2021-12-16 23:26] VITALS: BP 193/95; PULSE 99; RESP 19; O2SAT 98
== END 2021-12-16 23:27 | disposition home or self-care (01) ==
PROVIDERS: Emergency Provider Emergency Medicine; PCP Family Medicine
DX: M54.50 Low back pain, unspecified (principal)
CPT/HCPCS: 96372; 99283; J1885

== ENCOUNTER → 2022-04-23 06:48 | Outpatient (CLI) | payer OTHER, MEDICAID, SELFPAY ==
[2022-04-23 08:37] LABS: Hemoglobin A1C% w Est Avg Glu 6.6 % (4.0-6.0)
[2022-04-23 09:02] LABS: Gamma Glutamyl Transpeptidase 80 U/L (15-73)
[2022-04-24 06:36] LABS: HBsAg Screen Negative (Negative); Hepatitis A Antibody IgM Negative (Negative); Hepatitis B Core Antibody IgM Negative (Negative); Hepatitis C Antibody Non Reactive (Non Reactive)
== END ==
PROVIDERS: PCP Family Medicine; Referring Provider Family Medicine; Visit Provider Family Medicine
DX: R74.8 Abnormal levels of other serum enzymes (principal); E11.9 Type 2 diabetes mellitus without complications
CPT/HCPCS: 36415; 80074; 82977; 83036

== ENCOUNTER 2022-08-10 05:56 | Emergency (ER) | payer OTHER, MEDICAID, SELFPAY ==
--- NOTE | 2022-08-10 06:04 | ED_ITS ---
HPI - Back Pain/Injury <Christina Purvis, DO - Last Filed: 08/16/22 07:35> General Chief Complaint: Back Pain/Injury Stated Complaint: Chronic backpain Time Seen by Provider: 08/10/22 05:57 Source: patient, EMS, RN notes reviewed and old records reviewed Mode of arrival: EMS Limitations: no limitations History of Present Illness HPI Narrative: This is a 42-year-old male with history of hypertension, dyslipidemia, diabetes and chronic back pain. Patient presents with a complaint of acute on chronic back pain. Patient states pain is localized to the lower back states no radiation down his legs. He has sometimes gotten numbness and tingling down his left leg but not typically when he is in pain. He is noticed a little bit of discomfort and numbness but not currently. Denies any saddle anesthesia. No bowel or bladder incontinence. No weakness. Patient states movement particularly moving from lying to seated position or sitting to standing is quite painful appearing lying flat is more comfortable. Denies fevers or chills. No chest pain or shortness of breath, no nausea or vomiting, no diarrhea, constipation. Tooth your, frequency, urgency, retention or incontinence. Patient denies any prior surgeries. Uses smokeless tobacco, occasional alcohol none recent, no illicit. Does follow with primary care, Dr. Ruiz. Patient states he applicable leftover muscle relaxers and Vicodin that he is taken over the last 2 or 3 days with minimal improvement but states pain is sort of waxed and waned. Patient states he typically responds well to a shot of Toradol. Patient did receive fentanyl EN route with EMS. Patient states he was able to ambulate at home but was quite painful. Related Data Home Medications Medication Instructions Recorded Confirmed ibuprofen 200 mg tablet (Advil) 600 mg PO PRN PRN ##0 04/25/16 04/30/22 Previous Rx's Medication Instructions Recorded hydrochlorothiazide 25 mg tablet See Rx Instructions .Route 11/14/21 .COMPLEX #90 tabs cyclobenzaprine 10 mg tablet 10 mg PO TID PRN muscle spasm #10 12/16/21 tabs metoprolol succinate 50 mg See Rx Instructions .Route 04/30/22 tablet,extended release 24 hr .COMPLEX #180 tabs metformin 500 mg tablet,extended 1,000 mg PO DAILY #180 tabs 07/13/22 release 24 hr atorvastatin 20 mg tablet See Rx Instructions .Route 07/23/22 .COMPLEX #90 tabs lisinopril 40 mg tablet See Rx Instructions .Route 07/23/22 .COMPLEX #90 tabs diazepam 5 mg tablet (Valium) 5 mg PO BID-QID PRN muscle spasm 08/10/22 #15 tabs hydrocodone 5 mg-acetaminophen 325 1 tab PO Q4-6H PRN pain #10 tabs 08/10/22 mg tablet ketorolac 10 mg tablet 10 mg PO Q6H PRN pain #14 tabs 08/10/22 lidocaine 5 % topical patch 1 patch topical DAILY #15 ea 08/10/22 (Lidoderm) Allergies Allergy/AdvReac Type Severity Reaction Status Date / Time No Known Drug Allergies Allergy Verified 09/29/20 23:24 Review of Systems <Christina Purvis DO - Last Filed: 08/16/22 07:35> Review of Systems ROS Unobtainable: All systems reviewed & are unremarkable except as noted in HPI and below Patient History <Christina Purvis DO - Last Filed: 08/16/22 07:35> Medical History Diabetes mellitus Elevated liver enzymes Hypertension Impaired fasting glucose Varicose veins of lower extremity Venous stasis Surgical History No history of previous surgery Family History Father Age: 72 Atrial fibrillation, unspecified type Essential hypertension Mother Melanoma Social History Smoking Status: Never smoker Smokeless tobacco user: chewing tobacco (been chewing for 24 years. ) second hand exposure: Yes (occasionally) alcohol intake: current (beer about 3 times a week.) substance use type: marijuana (smoke it daily.) Smoking Status: Never smoker alcohol intake frequency: a few times a week Substance Use Type: marijuana Exam <Christina Purvis DO - Last Filed: 08/16/22 07:35> Narrative Exam Narrative: GENERAL: Alert and oriented x three, male in moderate distress. HEENT: Head normocephalic, atraumatic, EOMI, pupils reactive, face symmetric, moist mucous membranes NECK: Supple, full range of motion CARDIOVASCULAR: Regular rate and rhythm without murmurs, rubs or gallops. RESPIRATORY: Breath sounds equal bilaterally, no wheezes rales or rhonchi. ABDOMEN: Soft, nontender. Normoactive bowel sounds all 4 quadrants. No guarding or rebound, rigidity, no mass : No CVA tenderness BACK: No cervical, thoracic or lumbar vertebral point tenderness. Patient has decreased range of motion. Patient's gait is [antalgic/normal]. Rectal exam is deferred. Muscle strength is 5/5 in lower extremities, DTRs are 2/4 and lower extremities. Dorsalis pedis and tibialis pulses are 2+ and lower extremities. Sensation is intact in the lower extremities. EXTREMITIES: Normal range of motion, no clubbing or edema. Neurovascularly intact NEUROLOGICAL: Cranial nerves II through XII grossly intact. Moving all extremities SKIN: Warm, dry, no petechiae, no rashes or lesions. Initial Vital Signs Initial Vital Signs: Vital Signs Temperature 98 F 08/10/22 06:06 Pulse Rate 71 08/10/22 06:06 Respiratory Rate 22 08/10/22 06:06 Blood Pressure 119/60 08/10/22 06:06 Pulse Oximetry 97 08/10/22 06:06 Oxygen Delivery Method Room Air 08/10/22 06:06 <Macho Hamilton DO - Last Filed: 08/10/22 08:31> Initial Vital Signs Initial Vital Signs: Vital Signs Temperature 98 F 08/10/22 06:06 Pulse Rate 71 08/10/22 06:06 Respiratory Rate 22 08/10/22 06:06 Blood Pressure 119/60 08/10/22 06:06 Pulse Oximetry 97 08/10/22 06:06 Oxygen Delivery Method Room Air 08/10/22 06:06 Course <Christina Purvis DO - Last Filed: 08/16/22 07:35> Orders Ordered: Discontinued Medications Diazepam (Diazepam 5 Mg Tablet) 10 mg PO NOW ONE Stop: 08/10/22 06:57 Last Admin: 08/10/22 07:40 Dose: 10 mg Documented By: UMM Gabapentin (Gabapentin 300 Mg Capsule) 300 mg PO NOW ONE Stop: 08/10/22 07:35 Last Admin: 08/10/22 07:40 Dose: 300 mg Documented By: [facility]U Ketorolac Tromethamine (Ketorolac 30 Mg/Ml Vial) 30 mg IM NOW ONE Stop: 08/10/22 06:05 Last Admin: 08/10/22 06:18 Dose: Not Given Documented By: ELYSSA Ketorolac Tromethamine (Ketorolac 30 Mg/Ml Vial) 15 mg IV NOW ONE Stop: 08/10/22 06:11 Last Admin: 08/10/22 06:13 Dose: 15 mg Documented By: ELYSSA Lidocaine (Lidocaine Patch 1 Each Adh..Patch) 1 each TOP NOW ONE Stop: 08/10/22 08:23 Last Admin: 08/10/22 08:37 Dose: 1 each Documented By: UMM Vital Signs Vital signs: Vital Signs - 8 hr 08/10/22 06:06 Temperature 98 F Pulse Rate 71 Respiratory Rate 22 Blood Pressure 119/60 Pulse Oximetry 97 Oxygen Delivery Method Room Air <Macho Hamilton DO - Last Filed: 08/10/22 08:31> Orders Ordered: Discontinued Medications Diazepam (Diazepam 5 Mg Tablet) 10 mg PO NOW ONE Stop: 08/10/22 06:57 Last Admin: 08/10/22 07:40 Dose: 10 mg Documented By: UMM Gabapentin (Gabapentin 300 Mg Capsule) 300 mg PO NOW ONE Stop: 08/10/22 07:35 Last Admin: 08/10/22 07:40 Dose: 300 mg Documented By: UMM Ketorolac Tromethamine (Ketorolac 30 Mg/Ml Vial) 30 mg IM NOW ONE Stop: 08/10/22 06:05 Last Admin: 08/10/22 06:18 Dose: Not Given Documented By: ELYSSA Ketorolac Tromethamine (Ketorolac 30 Mg/Ml Vial) 15 mg IV NOW ONE Stop: 08/10/22 06:11 Last Admin: 08/10/22 06:13 Dose: 15 mg Documented By: ELYSSA Lidocaine (Lidocaine Patch 1 Each Adh..Patch) 1 each TOP NOW ONE Stop: 08/10/22 08:23 Last Admin: 08/10/22 08:37 Dose: 1 each Documented By: UMM Vital Signs Vital signs: Vital Signs - 8 hr 08/10/22 06:06 Temperature 98 F Pulse Rate 71 Respiratory Rate 22 Blood Pressure 119/60 Pulse Oximetry 97 Oxygen Delivery Method Room Air MDM - Back Pain/Injury <Christina Purvis DO - Last Filed: 08/16/22 07:35> Lab Data Labs: Urine Dip Bedside Urine Glucose Negative Bedside Urine Bilirubin - Negative Bedside Urine Ketone - Negative Urine Specific [facility] 1.025 Bedside Urine Occult Blood - Negative Bedside Urine pH 5.5 Bedside Urine Protein +/- 15 Bedside Urine Urobilinogen - Negative Bedside Urine Nitrite - Negative Bedside Urine Leukocytes - Negative Esterase MDM Narrative Medical decision making narrative: This is a 42-year-old male with acute on chronic back pain. Patient comes in quite uncomfortable had some fentanyl with EMS states usually responds well to Toradol. Was given 1 dose of Toradol IV, on rechecked maximally 30 minutes after medication patient still appears quite uncomfortable he notes the positioning of the bed is likely not helping. Will add 1 dose of oral muscle relaxer. But discussed with patient if persisting may need some additional workup. <Macho Hamilton, - Last Filed: 08/10/22 08:31> Lab Data Labs: Urine Dip Bedside Urine Glucose Negative Bedside Urine Bilirubin - Negative Bedside Urine Ketone - Negative Urine Specific [facility] 1.025 Bedside Urine Occult Blood - Negative Bedside Urine pH 5.5 Bedside Urine Protein +/- 15 Bedside Urine Urobilinogen - Negative Bedside Urine Nitrite - Negative Bedside Urine Leukocytes - Negative Esterase MDM Narrative Medical decision making narrative: This is a 42-year-old male with acute on chronic back pain. Patient comes in quite uncomfortable had some fentanyl with EMS states usually responds well to Toradol. Was given 1 dose of Toradol IV, on rechecked maximally 30 minutes after medication patient still appears quite uncomfortable he notes the positioning of the bed is likely not helping. Will add 1 dose of oral muscle relaxer. But discussed with patient if persisting may need some additional workup. [0700] (Alfonso) Patient received in sign out from [Yaniv]. I have reviewed the clinical course and performed an independent history and physical exam. [42] year old patient presents with severe left lower back pain after bending, lifting and twisting. Multiple etiologies for patient's symptoms considered including, but not limited to: [Muscle spasm versus cauda equina versus epidural abscess versus epidural hematoma versus kidney stone versus pyelonephritis versus other] Prior Charts reviewed in our EMR Primary Historian: patient Labs reviewed and interpreted by myself: Urine without evidence of infection or blood Patient's symptoms improved over duration of stay with above-stated therapies. He is ambulatory in the department with improved symptoms. Multiple diagnoses considered as noted but thankfully he shows improvement with relatively standard approach to low back pain, there is some question about the potential of early radiculopathy given the occasional numbness on his lateral thigh hence the choice to add gabapentin. Kidney stone and urinary tract infection considered but urine shows no sign of blood or infection. Findings and discharge diagnosis discussed with patient/family followed by verbalization of understanding Return precautions discussed with patient/family whom verbalize understanding of diagnosis and plan Discharge Plan Departure Patient Disposition: Home Clinical Impression: Lumbar back pain Instructions: DI for Back Spasm Activity Restrictions/Additional Instructions: *You have been diagnosed with [low back pain, possibly with a minor early radiculopathy. As we discussed there is no evidence of a neurosurgical emerg ency or spinal cord involvement] *What to do: *Please continue to take your regular medications as directed. [ x] New medication prescriptions sent to your pharmacy: [[facility] ] [ ] New medication written as a paper prescription [ ] No new medications given *Please follow up with your primary care provider in 2-3 days, call for an appointment. Let them know you were seen in the Emergency Department and that we ask that you be seen in follow up. We will electronically transmit a record of today's note if your PCP is in our system *Return to Emergency Department if you should have any new, worsening or concerning symptoms, such as [fever greater than 101 F, shaking chills, worsening pain, persistent vomiting, loss of control of bowel or bladder, lower extremity weakness or other bothersome symptoms] You have been prescribed a short course of narcotic medications. These are potentially dangerous and addictive medications that should be used carefully. While on these medications you cannot drive or operate heavy machinery. Additionally, you cannot sign legal documents or perform any duties such as this. 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 Please understand that we cannot provide further refills of narcotics or controlled substances through the ED and your pain management will need to be through your Primary Care Provider Prescriptions: New hydrocodone-acetaminophen 5-325 mg tablet 1 tab PO Q4-6H PRN (Reason: pain) Qty: 10 0RF ketorolac 10 mg tablet 10 mg PO Q6H PRN (Reason: pain) Qty: 14 0RF lidocaine [Lidoderm] 5 % adhesive patch,medicated 1 patch TOP DAILY Qty: 15 0RF Rx Instructions: leave on most painful area for 12 hrs diazepam [Valium] 5 mg tablet 5 mg PO BID-QID PRN (Reason: muscle spasm) Qty: 15 0RF No Action ibuprofen [Advil] 200 MG tablet 600 mg PO PRN PRNQty: 0 hydrochlorothiazide 25 mg tablet See Rx Instructions .ROUTE .COMPLEX Qty: 90 3RF Dose Instruction: TAKE ONE TABLET BY MOUTH ONE TIME DAILY Rx Instructions: TAKE ONE TABLET BY MOUTH ONE TIME DAILY metformin 500 mg tablet extended release 24 hr 1,000 mg PO DAILY Qty: 180 3RF Rx Instructions: Not able to tolerate quick release atorvastatin 20 mg tablet See Rx Instructions .ROUTE .COMPLEX Qty: 90 3RF Dose Instruction: TAKE ONE TABLET BY MOUTH DAILY AT BEDTIME Rx Instructions: TAKE ONE TABLET BY MOUTH DAILY AT BEDTIME lisinopril 40 mg tablet See Rx Instructions .ROUTE .COMPLEX Qty: 90 3RF Dose Instruction: TAKE ONE TABLET BY MOUTH ONE TIME DAILY Rx Instructions: TAKE ONE TABLET BY MOUTH ONE TIME DAILY metoprolol succinate 50 mg tablet extended release 24 hr See Rx Instructions .ROUTE .COMPLEX Qty: 180 3RF Dose Instruction: TAKE ONE TABLET BY MOUTH ONE TIME DAILY Rx Instructions: TAKE TWO TABLETS BY MOUTH ONE TIME DAILY cyclobenzaprine 10 mg tablet 10 mg PO TID PRN (Reason: muscle spasm) Qty: 10 0RF Referrals: Kenneth Ruiz MD [Primary Care Provider] - Stand Alone Forms: Patient Portal/API
[2022-08-10 06:06] VITALS: BP 119/60; PULSE 71; RESP 22; TEMP 36.6; O2SAT 97; BMI 58.3
[2022-08-10] MEDS: KETOROLAC 30 MG/ML VIAL 15 MG IV (06:13)
--- NOTE | 2022-08-10 07:25 | PC.NURSE ---
PROFESSOR OF COMMUNICATION Note - No unsteady gait, no reported increase in pain by patient
[2022-08-10] MEDS: diazePAM 5 MG TABLET 10 MG PO (07:40)
[2022-08-10] MEDS: GABAPENTIN 300 MG CAPSULE PO (07:40)
[2022-08-10] MEDS: LIDOCAINE PATCH 1 EACH ADH..PATCH TOP (08:37)
[2022-08-10 08:41] VITALS: BP 132/69; PULSE 71; RESP 22; O2SAT 96
== END 2022-08-10 08:43 | disposition home or self-care (01) ==
PROVIDERS: Emergency Provider Emergency Medicine; PCP Family Medicine
DX: M54.50 Low back pain, unspecified (principal)
CPT/HCPCS: 81003; 96374; 99284; J1885

== ENCOUNTER → 2023-01-11 06:49 | Outpatient (CLI) | payer OTHER, MEDICAID, SELFPAY ==
[2023-01-11 08:56] LABS: Add Manual Diff / Slide Review NO; Basophils Absolute Auto 100 /uL (0-100); Eosinophils Absolute Auto 500 /uL (0-450); Eosinophils Percent Auto 4.3 % (2-4); Hematocrit 42.9 % (41-53); Hemoglobin 14.6 g/dL (13.5-17.5); Lymphocytes Absolute Auto 1300 /uL (1100-4500); Lymphocytes Percent Auto 10.5 % (25-40); Mean Corpuscular Hemoglobin 29.2 PG (26-34); Mean Corpuscular Volume 85.9 fL (80-100); Monocytes Absolute Auto 1000 /uL (0-900); Monocytes Percent Auto 7.7 % (3-14); Neutrophils Absolute Auto 9400 /uL (1500-7000); Neutrophils Percent Auto 76.5 % (50-75); Platelet Count 355 X10^3/uL (150-400); Red Blood Cell Count 4.99 X10^6/uL (4.5-5.9); Red Cell Distribution Width 14.5 % (11.6-14.8); White Blood Cell Count 12.4 X10^3/uL (4.5-11.0)
[2023-01-11 09:03] LABS: Hemoglobin A1C% w Est Avg Glu 6.9 % (4.0-6.0)
[2023-01-11 09:20] LABS: Alanine Aminotransferase 67 IU/L (<50); Albumin Globulin Ratio 1.3 (1.0-2.8); Alkaline Phosphatase 118 U/L (38-126); Aspartate Aminotransferase 41 IU/L (17-59); BUN Creatinine Ratio 13.4 (6-22); Bilirubin Total 0.5 mg/dL (0.2-1.3); Blood Urea Nitrogen 11 mg/dL (9-20); Calcium 9.3 mg/dL (8.4-10.2); Carbon Dioxide 23 mmol/L (22-32); Chloride 101 mmol/L (98-107); Cholesterol 154 mg/dL (140-199); Estimated Glomerular Filt Rate > 60 mL/min (>60); Glucose 135 mg/dL (70-100); HDL Cholesterol 45 mg/dL (40-60); HEMOLYSIS < 15 (0-50); LDL Cholesterol Calculated 81 mg/dL (<100); Potassium 4.8 mmol/L (3.4-5.1); Sodium 134 mmol/L (137-145); Triglycerides 138 mg/dL (35-150)
[2023-01-11 10:21] LABS: Microalbumi Creatinin Ratio Ur 5.3 ug/mg CR (<30); Microalbumin Urine Random 1.3 mg/dL (0-1.6)
== END ==
PROVIDERS: PCP Family Medicine; Referring Provider Family Medicine; Visit Provider Family Medicine
DX: E03.9 Hypothyroidism, unspecified (principal); E55.9 Vitamin D deficiency, unspecified
CPT/HCPCS: 36415; 80053; 80061; 82043; 82570; 83036; 85025

== ENCOUNTER → 2023-10-24 06:48 | Outpatient (CLI) | payer OTHER, MEDICAID, SELFPAY ==
[2023-10-24 07:47] LABS: Add Manual Diff / Slide Review NO; Basophils Absolute Auto 100 /uL (0-100); Basophils Percent Auto 0.9 % (0-2); Eosinophils Absolute Auto 500 /uL (0-450); Eosinophils Percent Auto 4.1 % (2-4); Hematocrit 43.3 % (41-53); Hemoglobin 14.1 g/dL (13.5-17.5); Lymphocytes Absolute Auto 1200 /uL (1100-4500); Lymphocytes Percent Auto 9.4 % (25-40); Mean Corpuscular HGB Conc 32.6 % (30-36); Mean Corpuscular Hemoglobin 28.1 PG (26-34); Mean Corpuscular Volume 86.2 fL (80-100); Monocytes Absolute Auto 900 /uL (0-900); Monocytes Percent Auto 7.6 % (3-14); Neutrophils Absolute Auto 9700 /uL (1500-7000); Platelet Count 369 X10^3/uL (150-400); Red Blood Cell Count 5.02 X10^6/uL (4.5-5.9); Red Cell Distribution Width 14.3 % (11.6-14.8); White Blood Cell Count 12.4 X10^3/uL (4.5-11.0)
[2023-10-24 08:05] LABS: Hemoglobin A1C% w Est Avg Glu 6.6 % (4.0-6.0)
[2023-10-24 08:07] LABS: Alanine Aminotransferase 44 IU/L (<50); Albumin Globulin Ratio 1.3 (1.0-2.8); Alkaline Phosphatase 133 U/L (38-126); Aspartate Aminotransferase 34 IU/L (17-59); BUN Creatinine Ratio 11.1 (6-22); Bilirubin Total 0.5 mg/dL (0.2-1.3); Blood Urea Nitrogen 10 mg/dL (9-20); Calcium 9.5 mg/dL (8.4-10.2); Carbon Dioxide 24 mmol/L (22-32); Chloride 101 mmol/L (98-107); Cholesterol 160 mg/dL (140-199); Estimated Glomerular Filt Rate > 60 mL/min (>60); Glucose 155 mg/dL (70-100); HDL Cholesterol 46 mg/dL (40-60); HEMOLYSIS < 15 (0-50); LDL Cholesterol Calculated 90 mg/dL (<100); Potassium 5.1 mmol/L (3.4-5.1); Sodium 135 mmol/L (137-145); Triglycerides 120 mg/dL (35-150)
[2023-10-24 08:36] LABS: Prostate Specific Antigen Scrn 0.563 ng/mL (0.1-4.0)
[2023-10-24 08:52] LABS: TSH w/ Reflex to FT4 1.63 uIU/mL (0.47-4.68)
== END ==
PROVIDERS: PCP Family Medicine; Referring Provider Family Medicine; Visit Provider Family Medicine
DX: R74.8 Abnormal levels of other serum enzymes (principal); E11.9 Type 2 diabetes mellitus without complications; E78.5 Hyperlipidemia, unspecified; I10 Essential (primary) hypertension; Z12.5 Encounter for screening for malignant neoplasm of prostate
CPT/HCPCS: 36415; 80053; 80061; 83036; 84443; 85025; G0103

== ENCOUNTER → 2024-01-22 06:49 | Outpatient (CLI) | payer OTHER, MEDICAID, SELFPAY ==
[2024-01-22 09:20] LABS: Hemoglobin A1C% w Est Avg Glu 6.6 % (4.0-6.0)
[2024-01-22 09:25] LABS: Alanine Aminotransferase 53 IU/L (<50); Albumin 4.2 g/dL (3.5-5.0); Albumin Globulin Ratio 1.4 (1.0-2.8); Alkaline Phosphatase 139 U/L (38-126); Aspartate Aminotransferase 34 IU/L (17-59); BUN Creatinine Ratio 12.2 (6-22); Bilirubin Total 0.4 mg/dL (0.2-1.3); Blood Urea Nitrogen 12 mg/dL (9-20); Calcium 9.6 mg/dL (8.4-10.2); Carbon Dioxide 25 mmol/L (22-32); Chloride 102 mmol/L (98-107); Estimated Glomerular Filt Rate > 60 mL/min (>60); Glucose 138 mg/dL (70-100); HEMOLYSIS < 15 (0-50); Sodium 135 mmol/L (137-145); Total Protein 7.2 g/dL (6.3-8.2)
[2024-01-22 09:27] LABS: Potassium 5.9 mmol/L (3.4-5.1)
[2024-01-22 11:37] LABS: Creatinine Urine Random 113.72 mg/dL
[2024-01-22 11:40] LABS: Microalbumin Urine Random 1.1 mg/dL (0-1.6)
== END ==
PROVIDERS: PCP Family Medicine; Referring Provider Family Medicine; Visit Provider Family Medicine
DX: I10 Essential (primary) hypertension (principal); E78.5 Hyperlipidemia, unspecified; E66.01 Morbid (severe) obesity due to excess calories; Z68.44 Body mass index [BMI] 60.0-69.9, adult; R74.8 Abnormal levels of other serum enzymes; E11.9 Type 2 diabetes mellitus without complications
CPT/HCPCS: 36415; 80053; 82043; 82570; 83036

== ENCOUNTER → 2024-02-17 06:44 | Outpatient (CLI) | payer OTHER, SELFPAY ==
[2024-02-17 07:59] LABS: Add Manual Diff / Slide Review NO; Basophils Absolute Auto 100 /uL (0-100); Eosinophils Absolute Auto 500 /uL (0-450); Eosinophils Percent Auto 4.1 % (2-4); Hematocrit 45.5 % (41-53); Hemoglobin 14.9 g/dL (13.5-17.5); Lymphocytes Absolute Auto 1000 /uL (1100-4500); Mean Corpuscular HGB Conc 32.8 % (30-36); Mean Corpuscular Hemoglobin 28.1 PG (26-34); Mean Corpuscular Volume 85.7 fL (80-100); Monocytes Absolute Auto 800 /uL (0-900); Monocytes Percent Auto 6.7 % (3-14); Neutrophils Absolute Auto 9900 /uL (1500-7000); Neutrophils Percent Auto 80.2 % (50-75); Platelet Count 369 X10^3/uL (150-400); Red Blood Cell Count 5.31 X10^6/uL (4.5-5.9); Red Cell Distribution Width 14.3 % (11.6-14.8); White Blood Cell Count 12.4 X10^3/uL (4.5-11.0)
[2024-02-17 08:13] LABS: Hemoglobin A1C% w Est Avg Glu 6.6 % (4.0-6.0)
[2024-02-17 08:21] LABS: Alanine Aminotransferase 50 IU/L (<50); Albumin 3.9 g/dL (3.5-5.0); Albumin Globulin Ratio 1.3 (1.0-2.8); Alkaline Phosphatase 139 U/L (38-126); Aspartate Aminotransferase 33 IU/L (17-59); BUN Creatinine Ratio 11.5 (6-22); Bilirubin Total 0.4 mg/dL (0.2-1.3); Blood Urea Nitrogen 10 mg/dL (9-20); Calcium 9.4 mg/dL (8.4-10.2); Carbon Dioxide 23 mmol/L (22-32); Chloride 102 mmol/L (98-107); Estimated Glomerular Filt Rate > 60 mL/min (>60); Glucose 153 mg/dL (70-100); HEMOLYSIS < 15 (0-50); Sodium 135 mmol/L (137-145); Total Protein 6.9 g/dL (6.3-8.2)
== END ==
PROVIDERS: PCP Family Medicine; Referring Provider Family Medicine; Visit Provider Family Medicine
DX: R74.8 Abnormal levels of other serum enzymes (principal); E11.9 Type 2 diabetes mellitus without complications; I87.8 Other specified disorders of veins; E78.5 Hyperlipidemia, unspecified; I87.2 Venous insufficiency (chronic) (peripheral); I10 Essential (primary) hypertension
CPT/HCPCS: 36415; 80053; 83036; 85025

== ENCOUNTER → 2024-04-17 06:42 | Outpatient (CLI) | payer OTHER, SELFPAY ==
[2024-04-17 07:32] LABS: Add Manual Diff / Slide Review NO; Basophils Absolute Auto 100 /uL (0-100); Eosinophils Absolute Auto 500 /uL (0-450); Eosinophils Percent Auto 4.5 % (2-4); Hematocrit 46.3 % (41-53); Hemoglobin 15.2 g/dL (13.5-17.5); Lymphocytes Absolute Auto 1100 /uL (1100-4500); Lymphocytes Percent Auto 10.5 % (25-40); Mean Corpuscular HGB Conc 32.9 % (30-36); Mean Corpuscular Hemoglobin 28.3 PG (26-34); Monocytes Absolute Auto 900 /uL (0-900); Monocytes Percent Auto 7.8 % (3-14); Neutrophils Absolute Auto 8300 /uL (1500-7000); Neutrophils Percent Auto 76.2 % (50-75); Platelet Count 341 X10^3/uL (150-400); Red Blood Cell Count 5.39 X10^6/uL (4.5-5.9); Red Cell Distribution Width 14.5 % (11.6-14.8); White Blood Cell Count 10.9 X10^3/uL (4.5-11.0)
[2024-04-17 08:06] LABS: Alanine Aminotransferase 51 IU/L (<50); Albumin 4.2 g/dL (3.5-5.0); Albumin Globulin Ratio 1.3 (1.0-2.8); Alkaline Phosphatase 132 U/L (38-126); Aspartate Aminotransferase 35 IU/L (17-59); BUN Creatinine Ratio 11.3 (6-22); Bilirubin Total 0.5 mg/dL (0.2-1.3); Blood Urea Nitrogen 11 mg/dL (9-20); Calcium 9.6 mg/dL (8.4-10.2); Carbon Dioxide 26 mmol/L (22-32); Chloride 102 mmol/L (98-107); Estimated Glomerular Filt Rate > 60 mL/min (>60); Globulin 3.3 g/dL (1.7-4.1); Glucose 148 mg/dL (70-100); HEMOLYSIS < 15 (0-50); Potassium 4.8 mmol/L (3.4-5.1); Sodium 136 mmol/L (137-145); Total Protein 7.5 g/dL (6.3-8.2)
== END ==
PROVIDERS: PCP Family Medicine; Referring Provider Family Medicine; Visit Provider Family Medicine
DX: I10 Essential (primary) hypertension (principal); E78.5 Hyperlipidemia, unspecified; E11.9 Type 2 diabetes mellitus without complications
CPT/HCPCS: 36415; 80053; 85025

== ENCOUNTER → 2024-04-21 13:18 | Outpatient (CLI) | payer OTHER, SELFPAY ==
--- NOTE | 2024-04-21 13:20 | DI.US.S_ITS ---
PROCEDURE: US PERIPH VENOUS LOW EXTREM LT INDICATIONS: EDEMA TECHNIQUE: Real-time imaging, as well as color and pulse Doppler interrogation, were performed of the lower extremity deep veins from the inguinal ligament to the popliteal fossa, with documentation of the visualized calf veins. COMPARISON: None. FINDINGS: The common femoral, femoral, popliteal, and the visualized calf veins are normally compressible, and free of intraluminal thrombus. Color and pulse Doppler demonstrate normal phasic intraluminal flow. There is normal augmentation response to distal compression maneuver. No significant abnormalities can be seen at the areas of soft tissue edema. This study is limited by body habitus. IMPRESSION: No findings of lower extremity deep venous thrombosis. Dictated by: Arvind Zavaleta M.D. on 04/21/2024 at 14:27 Approved by: Arvind Zavaleta M.D. on 04/21/2024 at 14:27
== END ==
PROVIDERS: PCP Family Medicine; Referring Provider Family Medicine; Visit Provider Family Medicine
DX: M79.89 Other specified soft tissue disorders (principal)
CPT/HCPCS: 93971

== ENCOUNTER 2024-04-25 06:40 | Emergency (ER) | payer OTHER, SELFPAY ==
[2024-04-25 06:58] VITALS: BP 147/85; PULSE 78; RESP 20; TEMP 36.2; O2SAT 96; BMI 59.3
== END 2024-04-25 07:55 | disposition left against medical advice (07) ==
PROVIDERS: Emergency Provider Emergency Medicine; PCP Family Medicine
DX: M79.89 Other specified soft tissue disorders (principal)
CPT/HCPCS: 99281

== ENCOUNTER → 2024-07-17 06:42 | Outpatient (CLI) | payer OTHER, SELFPAY ==
[2024-07-17 07:44] LABS: Hemoglobin A1C% w Est Avg Glu 6.1 % (4.0-6.0)
[2024-07-17 07:50] LABS: Alanine Aminotransferase 43 IU/L (<50); Albumin 4.1 g/dL (3.5-5.0); Albumin Globulin Ratio 1.3 (1.0-2.8); Alkaline Phosphatase 139 U/L (38-126); Aspartate Aminotransferase 32 IU/L (17-59); BUN Creatinine Ratio 14.1 (6-22); Bilirubin Total 0.7 mg/dL (0.2-1.3); Blood Urea Nitrogen 12 mg/dL (9-20); Calcium 9.5 mg/dL (8.4-10.2); Carbon Dioxide 19 mmol/L (22-32); Chloride 103 mmol/L (98-107); Estimated Glomerular Filt Rate > 60 mL/min (>60); Globulin 3.1 g/dL (1.7-4.1); Glucose 157 mg/dL (70-99); HEMOLYSIS < 15 (0-50); Potassium 4.6 mmol/L (3.4-5.1); Sodium 134 mmol/L (137-145); Total Protein 7.2 g/dL (6.3-8.2)
== END ==
PROVIDERS: PCP Family Medicine; Referring Provider Family Medicine; Visit Provider Family Medicine
DX: R74.8 Abnormal levels of other serum enzymes (principal); E11.9 Type 2 diabetes mellitus without complications; E66.01 Morbid (severe) obesity due to excess calories; I87.8 Other specified disorders of veins; I10 Essential (primary) hypertension; E78.5 Hyperlipidemia, unspecified; Z68.44 Body mass index [BMI] 60.0-69.9, adult
CPT/HCPCS: 36415; 80053; 83036

== ENCOUNTER → 2024-10-09 06:50 | Outpatient (CLI) | payer OTHER, SELFPAY ==
[2024-10-09 08:19] LABS: Add Manual Diff / Slide Review NO; Hematocrit 44.5 % (41-53); Hemoglobin 15.0 g/dL (13.5-17.5); Lymphocytes Absolute Auto 1400 /uL (1100-4500); Mean Corpuscular HGB Conc 33.6 % (30-36); Mean Corpuscular Hemoglobin 29.2 PG (26-34); Mean Corpuscular Volume 86.9 fL (80-100); Platelet Count 385 X10^3/uL (150-400)
[2024-10-09 08:28] LABS: Hemoglobin A1C% w Est Avg Glu 6.3 % (4.0-6.0)
[2024-10-09 08:40] LABS: Alanine Aminotransferase 41 IU/L (<50); Albumin 4.1 g/dL (3.5-5.0); Albumin Globulin Ratio 1.3 (1.0-2.8); Alkaline Phosphatase 122 U/L (38-126); Blood Urea Nitrogen 13 mg/dL (9-20); Calcium 9.6 mg/dL (8.4-10.2); Carbon Dioxide 25 mmol/L (22-32); Chloride 101 mmol/L (98-107); Estimated Glomerular Filt Rate > 60 mL/min (>60); Globulin 3.1 g/dL (1.7-4.1); Glucose 141 mg/dL (70-99); HEMOLYSIS < 15 (0-50); Sodium 137 mmol/L (137-145); Total Protein 7.2 g/dL (6.3-8.2)
[2024-10-09 08:45] LABS: Potassium 5.8 mmol/L (3.4-5.1)
== END ==
PROVIDERS: PCP Family Medicine; Referring Provider Family Medicine; Visit Provider Family Medicine
DX: R74.8 Abnormal levels of other serum enzymes (principal); E11.9 Type 2 diabetes mellitus without complications; M79.89 Other specified soft tissue disorders; I87.2 Venous insufficiency (chronic) (peripheral)
CPT/HCPCS: 36415; 80053; 83036; 85025

== ENCOUNTER → 2024-10-12 06:38 | Outpatient (CLI) | payer OTHER, SELFPAY ==
[2024-10-12 07:43] LABS: Blood Urea Nitrogen 13 mg/dL (9-20); Calcium 9.4 mg/dL (8.4-10.2); Carbon Dioxide 25 mmol/L (22-32); Chloride 104 mmol/L (98-107); Estimated Glomerular Filt Rate > 60 mL/min (>60); Glucose 140 mg/dL (70-99); HEMOLYSIS < 15 (0-50); Potassium 5.2 mmol/L (3.4-5.1); Sodium 136 mmol/L (137-145)
== END ==
PROVIDERS: PCP Family Medicine; Referring Provider Family Medicine; Visit Provider Family Medicine
DX: E87.5 Hyperkalemia (principal)
CPT/HCPCS: 36415; 80048

== ENCOUNTER → 2025-01-13 06:43 | Outpatient (CLI) | payer OTHER, SELFPAY ==
[2025-01-13 07:47] LABS: Add Manual Diff / Slide Review NO; Hematocrit 44.6 % (41-53); Hemoglobin 15.1 g/dL (13.5-17.5); Lymphocytes Absolute Auto 1000 /uL (1100-4500); Mean Corpuscular HGB Conc 33.9 % (30-36); Mean Corpuscular Hemoglobin 29.3 PG (26-34); Mean Corpuscular Volume 86.3 fL (80-100); Platelet Count 350 X10^3/uL (150-400)
[2025-01-13 08:05] LABS: Hemoglobin A1C% w Est Avg Glu 6.2 % (4.0-6.0)
[2025-01-13 08:10] LABS: Alanine Aminotransferase 37 IU/L (<50); Albumin 4.1 g/dL (3.5-5.0); Albumin Globulin Ratio 1.2 (1.0-2.8); Alkaline Phosphatase 139 U/L (38-126); Blood Urea Nitrogen 12 mg/dL (9-20); Calcium 9.5 mg/dL (8.4-10.2); Carbon Dioxide 20 mmol/L (22-32); Chloride 103 mmol/L (98-107); Cholesterol 144 mg/dL (140-199); Estimated Glomerular Filt Rate > 60 mL/min (>60); Globulin 3.3 g/dL (1.7-4.1); Glucose 146 mg/dL (70-99); HDL Cholesterol 44 mg/dL (40-60); HEMOLYSIS < 15 (0-50); Potassium 4.8 mmol/L (3.4-5.1); Sodium 136 mmol/L (137-145); Total Protein 7.4 g/dL (6.3-8.2); Triglycerides 109 mg/dL (35-150)
[2025-01-13 08:40] LABS: TSH w/ Reflex to FT4 1.55 uIU/mL (0.47-4.68)
== END ==
PROVIDERS: PCP Family Medicine; Referring Provider Family Medicine; Visit Provider Family Medicine
DX: R74.8 Abnormal levels of other serum enzymes (principal); E11.9 Type 2 diabetes mellitus without complications; E78.5 Hyperlipidemia, unspecified; I10 Essential (primary) hypertension
CPT/HCPCS: 36415; 80053; 80061; 82172; 83036; 84443; 85025